=== PATIENT | female | born 1965 | race Caucasian/White ===

== ENCOUNTER → 2016-08-30 | Outpatient (CLI) | payer MEDICAID | LOC: FIMAGING 12:52 | PROVIDERS: ATTEND Nurse Practitioner Family | DX: Z12.31 Encounter for screening mammogram for malignant neoplasm of breast (principal) | CPT/HCPCS: G0202 ==

== ENCOUNTER 2016-10-20 22:37 | Emergency (ER) | payer MEDICAID ==
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
[2016-10-21 02:08] VITALS: BP 123/81; PULSE 71; RESP 16; TEMP 98.1; O2SAT 97
== END 2016-10-21 02:07 | disposition home or self-care (01) ==
LOC: EEVIPCON 22:37
DX: T74.21XA Adult sexual abuse, confirmed, initial encounter (principal); Y07.9 Unspecified perpetrator of maltreatment and neglect; Y93.89 Activity, other specified

== ENCOUNTER → 2017-07-07 | Outpatient (CLI) | payer MEDICAID | LOC: CIMAGING 11:44 | PROVIDERS: ATTEND Family Medicine | DX: M79.671 Pain in right foot (principal); M79.672 Pain in left foot | CPT/HCPCS: 71260-PO; 73620-PO; Q9967 ==

== ENCOUNTER → 2017-07-07 | Outpatient (CLI) | payer MEDICAID ==
[~2017-07-07] MED LIST: IOPAMIDOL (ISOVUE-300) 100 ML BTL ONE
== END ==
LOC: CIMAGING 09:27
DX: R91.1 Solitary pulmonary nodule (principal)
CPT/HCPCS: 71260-PO; Q9967